=== PATIENT | female | born 1990 | race Caucasian/White ===

== ENCOUNTER 2017-04-27 05:32 | Emergency (ER) | payer BC ==
[~2017-04-27] VITALS: Ht 160 cm; Wt 60.8 kg
[2017-04-27 08:00] VITALS: BP 107/66
== END 2017-04-27 08:00 | disposition home or self-care (01) ==
LOC: ED 05:32
DX: R07.89 Other chest pain (principal); M43.6 Torticollis
CPT/HCPCS: J1885